=== PATIENT | male | born 1965 | race Caucasian/White ===

== ENCOUNTER 2016-08-14 00:08 | Emergency (ER) | payer OTHER ==
[~2016-08-14 00:08] MED LIST: CERTAGEN1 EACH PO
[2016-09-29] MEDS ORDERED: COREG 3.125M3.125 MG PO (17:17)
[2016-09-29] MEDS ORDERED: BUMEX1 MG PO (17:17)
[2016-09-29] MEDS ORDERED: PRILOSEC20 MG PO (17:17)
[2016-09-29] MEDS ORDERED: ASPIRIN CHEWABL81 MG PO (17:17)
== END 2016-08-14 01:15 | disposition home or self-care (01) ==
LOC: FER 00:08
DX: T81.31XA Disruption of external operation (surgical) wound, not elsewhere classified, initial encounter (principal); K21.9 Gastro-esophageal reflux disease without esophagitis; Z98.890 Other specified postprocedural states; X58.XXXA Exposure to other specified factors, initial encounter; Z79.899 Other long term (current) drug therapy

== ENCOUNTER 2020-02-20 10:18 | Emergency (ER) | payer OTHER ==
[~2020-02-20 10:18] MED LIST changes: +ASPIRIN CHEWABL81 MG PO; +BACTRIM DS TAB1 EACH PO; +BUMEX1 MG PO; +BUPROPION XL300 MG PO; +CALCIUM MAGNES1 EACH PO; +CINNAMON500 MG PO; +COREG 3.125M3.125 MG PO; +COUMADIN 1MG TAB1 MG PO; +COUMADIN5 MG PO; +LASIX40 MG PO; +LISINOPRIL 5 MG5 MG PO; +LOPRESSOR25 MG PO; +LOVENOX120 MG/0.8 SC; +MEDROL 4MG DOSEP4 MG PO; +PERCOCET 5-3251 EACH PO; +PRILOSEC20 MG PO; +WARFARIN SODIUM10 MG PO
[2020-02-20 11:23] LABS: BASOPHIL 1.2 % (0-2); EOSINOPHIL 3.3 % (0-5); HCT 42.4 % (42.0-52.0); HGB 14.4 g/dl (13.2-18.0); MCH 29.6 pg (25.0-31.0); MCV 87.1 fL (78.0-100.0); MONOCYTE 9.2 % (0-12); MPV 10.4 fL (6.0-9.5); NEUTROPHIL 55.1 % (41-80); NRBC 0; PLT 174 K/uL (150-400); RBC 4.87 M/uL (4.70-6.00); RDW 12.9 % (11.5-14.0); WBC 4.9 K/uL (4.0-10.5)
[2020-02-20 11:38] LABS: INR 2.73 (0.9-1.2); PROTHROMBIN TIME 27.6 SECONDS (11.4-13.6); PTT 36.4 SECONDS (22.2-34.7)
[2020-02-20 11:39] LABS: D-DIMER < 0.27 ug/mLFEU (0.00-0.41)
[2020-02-20 11:53] LABS: PRO-BNP 181 pg/mL (<125)
[2020-02-20 11:59] LABS: ALBUMIN 3.6 g/dL (3.4-5.0); BILIRUBIN - TOTAL 0.4 mg/dL (0.2-1.0); BUN/CREAT RATIO (CALC) 22.2 RATIO; C-REACTIVE PROTEIN 0.3 mg/dL (<=0.90); CREATININE 0.81 mg/dL (0.67-1.17); GLOBULIN (CALCULATION) 2.9 g/dL; POTASSIUM 4.3 mmol/L (3.5-5.1); TOTAL PROTEIN 6.5 g/dL (6.4-8.2)
[2020-02-20] MEDS ORDERED: VIBRAMYCIN100 MG PO (13:27)
[2020-02-20] MEDS ORDERED: MEDROL 4MG DOSEP4 MG PO (13:27)
[2020-02-20] MEDS ORDERED: VENTOLIN HFA18 GM INH (13:27)
== END 2020-02-20 14:31 | disposition home or self-care (01) ==
LOC: FER 10:18
PROVIDERS: Emergency Medicine
DX: R05 Cough (principal); R55 Syncope and collapse; Z88.0 Allergy status to penicillin; Z88.2 Allergy status to sulfonamides; Z79.01 Long term (current) use of anticoagulants; Z95.2 Presence of prosthetic heart valve
CPT/HCPCS: 36415; 71275; 80053; 82728; 83615; 83880; 84145; 84484; 85025; 85379; 85610; 85730; 86140; 87040; 93005

== ENCOUNTER → 2020-10-29 | Day surgery (SDC) | payer OTHER ==
[~2020-10-29] VITALS: Ht 188 cm; Wt 104.8 kg
[~2020-10-29] MED LIST changes: +RANEXA500 MG PO; +TOPROL XL25 MG PO; +VENTOLIN HFA18 GM INH; +VIBRAMYCIN100 MG PO
[2020-10-29 11:47] LABS: HCT 42.7 % (42.0-52.0); HGB 15.1 g/dl (13.2-18.0); MCH 30.7 pg (25.0-31.0); MCHC 35.4 g/dL (32.0-36.0); MCV 86.8 fL (78.0-100.0); MPV 10.5 fL (6.0-9.5); RBC 4.92 M/uL (4.70-6.00); RDW 12.8 % (11.5-14.0); WBC 4.1 K/uL (4.0-10.5)
[2020-10-29 12:04] LABS: ALBUMIN 3.8 g/dL (3.4-5.0); BILIRUBIN - TOTAL 0.8 mg/dL (0.2-1.0); BUN/CREAT RATIO (CALC) 17.7 RATIO; CREATININE 0.79 mg/dL (0.67-1.17); TOTAL PROTEIN 6.8 g/dL (6.4-8.2)
== END | disposition home or self-care (01) ==
LOC: FAS 10:18
PROVIDERS: Orthopaedic Surgery
DX: G56.01 Carpal tunnel syndrome, right upper limb (principal); I10 Essential (primary) hypertension; E78.5 Hyperlipidemia, unspecified; K21.9 Gastro-esophageal reflux disease without esophagitis; Z88.0 Allergy status to penicillin; Z79.82 Long term (current) use of aspirin; Z79.899 Other long term (current) drug therapy
CPT/HCPCS: 36415; 80053; J1100; J1885; J2250; J2405; J2704; J3010; J7120